=== PATIENT | female | born 1970 | race Hispanic/Latino ===

== ENCOUNTER 2016-11-03 17:36 | Emergency (ER) | payer MEDICARE ==
[2016-11-03 19:28] VITALS: BP 126/78
--- NOTE | 2016-11-03 20:00 | Emergency Department Report ---
- General Chief Complaint: Upper Respiratory Infection Stated Complaint: TROUBLE BREATHING Time Seen by Provider: 11/03/16 19:56 Source: patient Mode of arrival: Ambulatory Limitations: No Limitations - History of Present Illness Initial Comments: 46-year-old female presents to the emergency room with multiple complaints chronic sore throat, nasal pain,ear pain, cough since June of last year. Patient states that she fell while she was incarcerated in June of last year. since she is having these multiple complaints. MD Complaint: cough, sore throat, rhinorrhea, nasal congestion, sinus pain -: Gradual, month(s) (several) Severity: moderate Severity scale (0 -10): 3 Quality: dull, aching Consistency: constant Improves With: nothing Worsens With: activity Associated Symptoms: denies other symptoms - Related Data Previous Rx's Medication Instructions Recorded Last Taken Type Amoxicillin/K Clav Tab [Augmentin 1 tab PO BID #14 tablet 04/19/14 Unknown Rx 875MG] Benzocaine [Oral Pain Reliever] 14 gm MM DAILY #1 paste..g. 04/19/14 Unknown Rx Oxycodone HCl/Acetaminophen 1 each PO Q6HR PRN #10 tablet 04/19/14 Unknown Rx [Percocet 7.5-325 mg] Azithromycin [Zithromax Z-CRISTINA] 0 mg PO DAILY #1 pack 11/03/16 Unknown Rx Diclofenac Sodium 75 mg PO BID #20 tablet. 11/03/16 Unknown Rx predniSONE [Deltasone] 20 mg PO QDAY #5 tab 11/03/16 Unknown Rx Allergies Allergy/AdvReac Type Severity Reaction Status Date / Time codeine Allergy Vomiting Verified 04/12/16 14:58 Sulfa (Sulfonamide Allergy Unknown Verified 04/19/14 13:44 Antibiotics) ED Review of Systems ROS: Stated complaint: TROUBLE BREATHING Other details as noted in HPI Comment: All other systems reviewed and negative Constitutional: denies: chills, fever Eyes: as per HPI. denies: eye pain, eye discharge, vision change ENT: as per HPI, throat pain. denies: ear pain Respiratory: cough. denies: shortness of breath, wheezing Cardiovascular: denies: chest pain, palpitations Endocrine: no symptoms reported Gastrointestinal: denies: abdominal pain, nausea, diarrhea Genitourinary: denies: urgency, dysuria, discharge Musculoskeletal: denies: back pain, joint swelling, arthralgia Skin: denies: rash, lesions Neurological: denies: headache, weakness, paresthesias Psychiatric: denies: anxiety, depression Hematological/Lymphatic: denies: easy bleeding, easy bruising ED Past Medical Hx - Past Medical History Previous Medical History?: Yes Additional medical history: CIRROSIS. HEP C - Surgical History Past Surgical History?: No Hx Appendectomy: Yes Additional Surgical History: hysterectomy. tonsillectomy. bladder reconstruction - Family History Family history: no significant - Social History Smoking Status: Current Every Day Smoker Substance Use Type: Alcohol - Medications Home Medications: Home Medications Medication Instructions Recorded Confirmed Last Taken Type Amoxicillin/K Clav Tab [Augmentin 1 tab PO BID #14 tablet 04/19/14 Unknown Rx 875MG] Benzocaine [Oral Pain Reliever] 14 gm MM DAILY #1 paste..g. 04/19/14 Unknown Rx Oxycodone HCl/Acetaminophen 1 each PO Q6HR PRN #10 tablet 04/19/14 Unknown Rx [Percocet 7.5-325 mg] Azithromycin [Zithromax Z-CRISTINA] 0 mg PO DAILY #1 pack 11/03/16 Unknown Rx Diclofenac Sodium 75 mg PO BID #20 tablet.dr 11/03/16 Unknown Rx predniSONE [Deltasone] 20 mg PO QDAY #5 tab 11/03/16 Unknown Rx ED Physical Exam - General Limitations: No Limitations General appearance: alert, in no apparent distress - Head Head exam: Present: atraumatic, normocephalic - Eye Eye exam: Present: normal appearance, PERRL, EOMI - ENT ENT exam: Present: normal exam, mucous membranes moist - Neck Neck exam: Present: normal inspection - Respiratory Respiratory exam: Present: normal lung sounds bilaterally. Absent: respiratory distress - Cardiovascular Cardiovascular Exam: Present: regular rate, normal rhythm. Absent: systolic murmur, diastolic murmur, rubs, gallop - GI/Abdominal GI/Abdominal exam: Present: soft, normal bowel sounds - Extremities Exam Extremities exam: Present: normal inspection, full ROM - Back Exam Back exam: Present: normal inspection, full ROM - Neurological Exam Neurological exam: Present: alert, oriented X3, CN II-XII intact, normal gait, motor sensory deficit - Psychiatric Psychiatric exam: Present: normal affect, normal mood - Skin Skin exam: Present: warm, dry, intact, normal color. Absent: rash ED Course Vital Signs 11/03/16 19:20 Temperature 97.8 F Pulse Rate 97 H Respiratory 20 Rate Blood Pressure 126/78 Blood Pressure 126/78 [Left] O2 Sat by Pulse 100 Oximetry Critical care attestation.: If time is entered above; I have spent that time in minutes in the direct care of this critically ill patient, excluding procedure time. ED Disposition Clinical Impression: Pain syndrome, chronic, Chronic cough Disposition: DISCHARGED TO HOME OR SELFCARE Is pt being admited?: No Does the pt Need Aspirin: No Condition: Good Instructions: Chronic Pain (ED), Chronic Cough (ED) Prescriptions: Azithromycin [Zithromax Z-CRISTINA] 0 mg PO DAILY #1 pack Diclofenac Sodium 75 mg PO BID #20 tablet. predniSONE [Deltasone] 20 mg PO QDAY #5 tab Referrals: [facility] [Outside] - 3-5 Days
[2016-11-03] MEDS ORDERED: DECADRON IM ONE (20:17)
[2016-11-03] MEDS ORDERED: NORCO 10/325 PO ONE (20:31)
== END 2016-11-03 21:12 | disposition home or self-care (01) ==
LOC: ED 17:36
DX: R52 Pain, unspecified (principal); R05 Cough; F17.200 Nicotine dependence, unspecified, uncomplicated; Z88.2 Allergy status to sulfonamides; Z88.5 Allergy status to narcotic agent
CPT/HCPCS: 96372; 99282; J1100